=== PATIENT | female | born 1970 | race African-American/Black ===

== ENCOUNTER 2021-02-03 08:04 | Outpatient (CLI) | payer BC | END 2021-02-03 08:05 | disposition home or self-care (01) | LOC: CSHMAMMO 08:04 | PROVIDERS: ATTEND Family Medicine | DX: Z12.31 Encounter for screening mammogram for malignant neoplasm of breast (principal) | CPT/HCPCS: 77063; 77067 ==

== ENCOUNTER 2021-07-13 11:11 | Outpatient (CLI) | payer BC ==
[2021-07-13 12:29] LABS: Hemoglobin 12.6 g/dL (12.0-15.5); Mean Corpuscular HGB CONC 31.7 g/dL (32.0-36.0); Mean Platelet Volume 11.2 fl (7.4-10.4); Platelet Count 204 10x3/uL (150-450); RBC Distribution Width 15.4 % (11.5-14.5); Red Blood Cell (RBC) Count 4.84 10x6/uL (3.90-5.03); White Blood Cell (WBC) Count 5.2 10x3/uL (3.5-10.5)
[2021-07-13 12:46] LABS: Anion Gap 14 mmol/L (10-20); BUN (Urea Nitrogen) 13 mg/dL (9.8-20.1); Calc. Creatinine Clearance 0 mL/min (70-130); Calcium 9.7 mg/dL (7.8-10.44); Carbon Dioxide 27 mmol/L (22-29); Chloride 105 mmol/L (98-107); Glucose 80 mg/dL (70-105); Sodium 142 mmol/L (136-145)
[2021-07-13 22:06] LABS: SARS-CoV-2 PCR by NAA Not Detected (NotDetected)
== END 2021-07-13 11:12 | disposition home or self-care (01) ==
LOC: CSHLAB 11:11
PROVIDERS: ATTEND Podiatrist Foot & Ankle Surgery
DX: Z01.812 Encounter for preprocedural laboratory examination (principal); Z20.822 Contact with and (suspected) exposure to COVID-19; T84.498A Other mechanical complication of other internal orthopedic devices, implants and grafts, initial encounter
CPT/HCPCS: 80048; 85027; U0003; U0005

== ENCOUNTER 2021-07-18 11:04 | Day surgery (SDC) | payer BC ==
[2021-07-13 11:00] VITALS: BMI 40.3
[2021-07-18] MEDS ORDERED: Lidocaine 1% MPF 2 ML VIAL ONE (11:39)
[2021-07-18] MEDS ORDERED: Phenylephrine 10 MG/ML VIAL ONE (12:20)
[2021-07-18] MEDS ORDERED: Midazolam HCl 2 mg/2 ml Vial ONE (12:23)
[2021-07-18] MEDS ORDERED: Neomycin-Polymyxin 1 ML AMP ONE (13:11)
[2021-07-18] MEDS ORDERED: Bupivacaine PF 0.5% 30 ML VIAL ONE (13:11)
[2021-07-18] MEDS ORDERED: Fentanyl 100 MCG/2 ML VIAL ONE ×2 (13:12→15:08)
[2021-07-18] MEDS ORDERED: PROPOFOL 20 ML ONE (13:12)
[2021-07-18] MEDS ORDERED: ceFAZolin 2 GM/Dextrose 50 ML IVPB ONE (13:32)
[2021-07-18] MEDS ORDERED: ePHEDrine Sulfate 50 MG/10 ML VIAL ONE (14:26)
[2021-07-18] MEDS ORDERED: Ondansetron PF 4 MG/2 ML Vial ONE (14:32)
== END 2021-07-18 16:00 | disposition home or self-care (01) ==
LOC: CSHSDC 11:04
PROVIDERS: ATTEND Podiatrist Foot & Ankle Surgery
PROC: 0SGP04Z Fusion of Right Toe Phalangeal Joint with Internal Fixation Device, Open Approach (ICD-10-PCS; principal; 2021-07-18)
DX: T84.84XA Pain due to internal orthopedic prosthetic devices, implants and grafts, initial encounter (principal); D16.31 Benign neoplasm of short bones of right lower limb; E66.01 Morbid (severe) obesity due to excess calories; Z68.42 Body mass index [BMI] 45.0-49.9, adult; E11.9 Type 2 diabetes mellitus without complications; I10 Essential (primary) hypertension; Z79.899 Other long term (current) drug therapy
CPT/HCPCS: J0690; J2250; J2370; J2405; J2704; J3010; S0020

== ENCOUNTER 2022-04-03 07:58 | Outpatient (CLI) | payer BC | END 2022-04-03 07:59 | disposition home or self-care (01) | LOC: CSHMAMMO 07:58 | PROVIDERS: ATTEND Family Medicine | DX: Z12.31 Encounter for screening mammogram for malignant neoplasm of breast (principal) | CPT/HCPCS: 77063; 77067 ==

== ENCOUNTER 2023-12-19 09:09 | Outpatient (CLI) | payer BC | END 2023-12-19 09:10 | disposition home or self-care (01) | LOC: CSHMAMMO 09:09 | PROVIDERS: ATTEND Family Medicine | DX: Z12.31 Encounter for screening mammogram for malignant neoplasm of breast (principal) | CPT/HCPCS: 77063; 77067 ==